=== PATIENT | female | born 1975 | race Caucasian/White ===

== ENCOUNTER 2016-10-26 10:38 | Emergency (ER) ==
[2016-10-26 10:48] VITALS: BP 119/75; TEMP 99.3; BMI 25.8
--- NOTE | 2016-10-26 11:04 | ED.PDOC ---
General ED Provider: Dr. ZENY NAIK Chief Complaint: Respiratory Complaint Stated Complaint: Been short of breath for couple day, even with minimal exertion, chest tightness. some chest tightness. also coughing congested. Time Seen by Physician: 11:02 Mode of Arrival: Walk-In Information Source: Patient Primary Care Provider: MANUEL PIERSON Nursing and Triage Documentation Reviewed and Agree: Yes Respiratory Complaint Exam - Shortness of Air Complaint/Exam Symptoms Are: Still present Timing: Constant Initial Severity: Moderate Current Severity: Moderate Character: Reports: Dyspnea on exertion Aggravating: Reports: Movement Alleviating: Reports: None Associated Signs and Symptoms: Reports: Cough, Rapid breathing. Denies: Wheezing, Chest pain with cough, Chest pain, Fever, Chills, Diaphoresis, Nasal congestion, Dizziness, Calf pain, Calf swelling, Edema, Labored breathing, Decreased intake Related History: Reports: Similar episode History of Healthcare-Acquired Pneumonia: No Pulmonary Embolism Risk Factors: Reports: OCs/Estrogen, Smoking Cardiac Risk Factors: Reports: None Pseudomonas Risk Factors: Reports: None Tuberculosis Risk Factors: Reports: None Home Oxygen Use: No Recent Stress Test: No Recent Echo/LV Function: No Respiratory Distress: None Stridor Present: No Tracheal Deviation: No Subcutaneous Emphysema: No Accessory Muscle Use: No Retractions: Not Present Diminished Breath Sounds: No Prolonged Expiratory Phase: No Unable to Speak Full Sentences: No Differential Diagnoses: Pneumonia, Bronchitis, Other (pe) Quality Indicators for AMI: EKG in 10min. Review of Systems - Review Of Systems Constitutional: Reports: No symptoms Eyes: Reports: No symptoms Ears, Nose, Mouth, Throat: Reports: No symptoms Respiratory: Reports: Cough, Short of air Cardiac: Reports: Chest pain GI: Reports: No symptoms : Reports: No symptoms Musculoskeletal: Reports: No symptoms Skin: Reports: No symptoms Neurological: Reports: No symptoms Endocrine: Reports: No symptoms Hematologic/Lymphatic: Reports: No symptoms All Other Systems: Reviewed and Negative Past Medical History - Past Medical History Previously Healthy: Yes Endocrine: Reports: None Cardiovascular: Reports: None Respiratory: Reports: None Hematological: Reports: None Gastrointestinal: Reports: None Genitourinary: Reports: None Neuro/Psych: Reports: None Musculoskeletal: Reports: None Cancer: Reports: None Last Menstrual Period: 1 week ago - Surgical History General Surgical History: Reports: None - Family History Family History: Reports: None - Social History Smoking Status: Current every day smoker Smoking Cessation Counseling Time: > 3 min - 10 min Hx Substance Use: No Alcohol Screening: Occasionally - Immunizations Tetanus Shot up to Date: Yes Physical Exam - Physical Exam Appearance: Well-appearing, No pain distress, Well-nourished Eyes: HUANG, EOMI, Conjunctiva clear ENT: Ears normal, Nose normal, Oropharynx normal Respiratory: Airway patent, Breath sounds clear, Breath sounds equal, Respirations nonlabored Cardiovascular: RRR, Pulses normal, No rub, No murmur GI/: Soft, Nontender, No masses, Bowel sounds normal, No Organomegaly Musculoskeletal: Normal strength, ROM intact, No edema, No calf tenderness Skin: Warm, Dry, Normal color Neurological: Sensation intact, Motor intact, Reflexes intact, Cranial nerves intact, Alert, Oriented Psychiatric: Affect appropriate, Mood appropriate Interpretation - Radiology Interpretation Radiology Interpretation By: Radiologist Radiology Results: Negative Exam Interpreted: CT Scan Critical Care Note - Critical Care Note Total Time (mins): 0 Course - Course Hematology/Chemistry: 10/26/16 11:05 10/26/16 11:05 Orders, Labs, Meds: Lab Review 10/26/16 11:05 WBC 4.32 L RBC 4.85 Hgb 14.8 Hct 44.8 MCV 92.4 MCH 30.5 MCHC 33.0 RDW Coeff of Sheldon 13.0 Plt Count 277 Immature Gran % (Auto) 0.2 Neut % (Auto) 45.4 Lymph % (Auto) 37.0 Greene % (Auto) 10.9 H Eos % (Auto) 5.6 Baso % (Auto) 0.9 Immature Gran # (Auto) 0.0 Neut # 2.0 Lymph # 1.6 Greene # 0.5 Eos # 0.2 Baso # 0.0 D-Dimer (Manual) 186.93 Sodium 140 Potassium 4.0 Chloride 106 Carbon Dioxide 26 Anion Gap 12.0 BUN 12 Creatinine 0.77 Estimated GFR (MDRD) 83.00 BUN/Creatinine Ratio 15.58 Glucose 79 Calcium 9.4 Total Bilirubin 0.59 AST 13 L ALT 12 Alkaline Phosphatase 62 Total Creatine Kinase 124 CK-MB (CK-2) 0.7 CK-MB (CK-2) % 0.59406 Troponin I < 0.0100 B-Natriuretic Peptide < 10 Total Protein 7.8 Albumin 4.4 Globulin 3.4 Albumin/Globulin Ratio 1.29 Influenza A (Rapid) Negative Influenza B (Rapid) Negative Orders Category Date Time Status EKG-(ED ONLY) Stat CARDIO 10/26/16 11:07 Completed NPO REMINDER: IMAGING ONCE CARE 10/26/16 11:01 Completed B-TYPE NATRIURETIC PEPTIDE Stat LAB 10/26/16 11:05 Completed CBC W/ AUTO DIFF Stat LAB 10/26/16 11:05 Completed COMPREHENSIVE METABOLIC PANEL Stat LAB 10/26/16 11:05 Completed CREATINE KINASE Stat LAB 10/26/16 11:05 Completed D-DIMER Stat LAB 10/26/16 11:05 Completed RAPID FLU A/B Stat LAB 10/26/16 11:05 Completed TROPONIN I Stat LAB 10/26/16 11:[address] CHEST PE PROTOCOL Stat RADS 10/26/16 11:00 Completed Vital Signs: Temp Pulse Resp BP Pulse Ox 10/26/16 10:39 99.3 F 82 18 119/75 98 Departure - Departure Time of Disposition: 12:57 Disposition: HOME SELF-CARE Discharge Problem: URTI (acute upper respiratory infection) Chest pain Qualifiers: Chest pain type: precordial pain Qualifier Code: (R07.2) Precordial pain Instructions: Upper Respiratory Infection (ED) Condition: Stable Pt referred to PMD for follow-up: Yes Additional Instructions: Take medication with food increase hydration Prescriptions: Azithromycin [Zithromax] 250 mg PO DIRECTED #6 tablet Prednisone 10 mg PO BIDWM #14 tablet Allergies/Adverse Reactions: Allergies No Known Allergies Allergy (Verified 10/26/16 10:49) Home Medications: Ambulatory Orders Azithromycin [Zithromax] 250 mg PO DIRECTED #6 tablet 10/26/16 Mometasone Furoate [Asmanex Hfa] 100 mcg IH BID 10/26/16 Prednisone 10 mg PO BIDWM #14 tablet 10/26/16 Disposition Discussed With: Patient, Family
[2016-10-26 11:12] LABS: BASOPHILS % (AUTO) 0.9 % (0.0-3.0); EOSINOPHILS # (AUTO) 0.2 K/ul (0.0-0.7); EOSINOPHILS % (AUTO) 5.6 % (0.0-7.0); HEMATOCRIT 44.8 % (37.0-47.0); HEMOGLOBIN 14.8 g/dl (12.0-16.0); IMMATURE GRANULOCYTE % (AUTO) 0.2 % (0.0-5.0); LYMPHOCYTES # (AUTO) 1.6 K/uL (0.60-3.4); MEAN CORPUSCULAR HEMOGLOBIN 30.5 pg (27.0-31.0); MEAN CORPUSCULAR VOLUME 92.4 fl (81.0-99.0); MONOCYTES # (AUTO) 0.5 K/uL (0.4-2.0); MONOCYTES % (AUTO) 10.9 (0-10); NEUTROPHILS % (AUTO) 45.4; PLATELET COUNT 277 10^3/uL (140-440); RED BLOOD COUNT 4.85 10^6/ul (4.20-5.40); WHITE BLOOD COUNT 4.32 K/ul (4.6-10.2)
[2016-10-26 11:40] LABS: FLU INTERNAL QC INTERNAL QC VALID; RAPID FLU A NEGATIVE (NEGATIVE); RAPID FLU B NEGATIVE (NEGATIVE)
[2016-10-26 11:47] LABS: ALANINE AMINOTRANSFERASE 12 U/L (12-78); ALBUMIN 4.4 g/dL (3.4-5.0); ALBUMIN/GLOBULIN RATIO 1.29; ALKALINE PHOSPHATASE 62 U/L (42-98); ASPARTATE AMINO TRANSFERASE 13 U/L (15-37); BILIRUBIN,TOTAL 0.59 mg/dL (0.00-1.20); BLOOD UREA NITROGEN 12 mg/dL (7-18); BUN/CREATININE RATIO 15.58; CALCIUM 9.4 mg/dL (8.2-10.2); CARBON DIOXIDE 26 mmol/L (21-32); CHLORIDE 106 mmol/L (98-107); CREATINE KINASE 124 U/L; CREATININE 0.77 mg/dL (0.60-1.30); GLUCOSE 79 mg/dL (70-110); SODIUM 140 mmol/L (136-145); TOTAL PROTEIN 7.8 g/dL (6.4-8.2)
[2016-10-26 11:54] LABS: CREATINE KINASE MB 0.7 ng/ml (0.0-3.6)
--- NOTE | 2016-10-26 12:52 | CT ---
Examination: CT angiography of the chest with axial, sagittal, and coronal reformats. PE protocol. 3-D MIP reconstruction. Comparison: None available. Reason for study: Short of breath. FINDINGS: No pneumothorax, pleural effusion, or focal consolidation. There is mild bibasilar atelectasis. Th e heart is not enlarged. No main, proximal, or segmental pulmonary arterial filling defects are seen. The heart is not enlarged. The aorta is normal in size and caliber. The gallbladder is been removed. The liver, spleen, and adrenal glands are unremarkable. No osteoblastic or osteolytic lesions. Impression: 1. No main, proximal, or segmental pulmonary arterial filling defect. 2. No pneumothorax, pleural effusion, or focal consolidation. 3. No aortic dissection or aneurysmal dilatation.
[2016-10-26] MEDS ORDERED: DECADRON 4 MG/ML SDV IVP STA (12:56)
== END 2016-10-26 13:12 | disposition home or self-care (01) ==
LOC: ED 10:38
DX: J06.9 Acute upper respiratory infection, unspecified (principal); R07.2 Precordial pain; F17.210 Nicotine dependence, cigarettes, uncomplicated
CPT/HCPCS: 36415; 80053; 82550; 82553; 83880; 84484; 85025; 85379; 87804; 93005; 93010; 96375; 99284

== ENCOUNTER 2016-12-16 12:00 | Outpatient (CLI) | payer OTHER ==
[2016-12-16 12:38] LABS: BASOPHILS # (AUTO) 0.1 K/uL (0-0.2); EOSINOPHILS # (AUTO) 0.3 K/ul (0.0-0.7); EOSINOPHILS % (AUTO) 5.2 % (0.0-7.0); HEMOGLOBIN 14.4 g/dl (12.0-16.0); IMMATURE GRANULOCYTE % (AUTO) 0.2 % (0.0-5.0); LYMPHOCYTES # (AUTO) 1.6 K/uL (0.60-3.4); LYMPHOCYTES % (AUTO) 31.4 (10.0-50.0); MEAN CORPUSCULAR HEMOGLOBIN 31.3 pg (27.0-31.0); MEAN CORPUSCULAR HGB CONC 33.5 (31.8-35.4); MEAN CORPUSCULAR VOLUME 93.5 fl (81.0-99.0); MONOCYTES # (AUTO) 0.4 K/uL (0.4-2.0); MONOCYTES % (AUTO) 8.2 (0-10); NEUTROPHILS # (AUTO) 2.7 K/ul (2.0-6.9); PLATELET COUNT 276 10^3/uL (140-440); WHITE BLOOD COUNT 4.97 K/ul (4.6-10.2)
[2016-12-16 12:50] LABS: MONO INTERNAL QC INTERNAL QC VALID
--- NOTE | 2016-12-16 13:06 | DI ---
Exam: Single x-ray of the abdomen. Comparison: None available. Reason for exam: Abdominal pain. FINDINGS: Mild dextroscoliosis of the lumbar spine. The bowel gas pattern is nonspecific and nonob structive. There is air seen to the level rectosigmoid. No calcific densities are seen overlying t he expected location of the kidneys or ureters. Intrauterine device is seen within the pelvis. Impression: Nonspecific, nonobstructive bowel gas pattern.
[2016-12-16 13:19] LABS: ALBUMIN 4.2 g/dL (3.4-5.0); ALBUMIN/GLOBULIN RATIO 1.31; BILIRUBIN,TOTAL 0.34 mg/dL (0.00-1.20); BUN/CREATININE RATIO 11.11; CALCIUM 9.7 mg/dL (8.2-10.2); CREATININE 0.81 mg/dL (0.60-1.30); TOTAL PROTEIN 7.4 g/dL (6.4-8.2)
== END 2016-12-16 12:01 | disposition home or self-care (01) ==
LOC: LAB 12:00
PROVIDERS: ATTEND Nurse Practitioner Family
DX: R53.83 Other fatigue (principal); R10.84 Generalized abdominal pain
CPT/HCPCS: 36415; 80053; 80074; 82150; 83690; 84439; 84443; 85025; 86308